=== PATIENT | male | born 1955 | race Caucasian/White ===

== ENCOUNTER → 2019-02-09 | Outpatient (CLI) | payer BC ==
--- NOTE | 2019-02-09 15:19 | RADIOLOGY REPORT (SQ) ---
EXAM DESCRIPTION: CT ABDOMEN COMBO COMPLETED DATE/TIME: 02/09/2019 2:21 pm REASON FOR STUDY: R74.0 NONSPEC ELEV OF LEVELS OF TRANSAMNS LACTIC ACID DEHYDRGNSE R74.0 NONSPEC ELEV OF LEVELS OF TRANSAMNS LACTIC ACID DEHY COMPARISON: None. TECHNIQUE: CT scan of the abdomen performed with and without intravenous contrast, and oral contras t. Contrasted imaging performed using helical scanning technique with dynamic intravenous contrast in jection. Images reviewed with lung, soft tissue, and bone windows. Reconstructed coronal and sagittal MPR images reviewed. Delayed images for evaluation of the urinary system also acquired and evaluated . All images stored on PACS. All CT scanners at this facility use dose modulation, iterative reconstruction, and/or weight based d osing when appropriate to reduce radiation dose to as low as reasonably achievable (ALARA). [facility]: Dose Right [facility]: CareDose [facility]: Dose Right [facility]: Teradose 4D [facility]: [employer] CONTRAST TYPE AND DOSE: Contrast/concentration: Isovue 350.00 mg/ml; Total Contrast Delivered: 55.0 ml; Total Saline Delivered: 80.0 ml RENAL FUNCTION: Creatinine 0.8 milligram/deciliter RADIATION DOSE: CT Rad equipment meets quality standard of care and radiation dose reduction [employer], [employer] ues were employed. CTDIvol: 12.2 - 33.8 mGy. DLP: 2199 mGy-cm.. LIMITATIONS: None. FINDINGS: NONCONTRASTED IMAGING: The diffuse hypoattenuation of the hepatic parenchyma is consistent with hepatic steatosis. There is no nephrolithiasis. POSTCONTRASTED IMAGING: LOWER CHEST: No basilar consolidation or pleural effusion. No cardiomegaly or pericardial effusion. LIVER: The liver morphology is non cirrhotic. There is a subcentimeter hypervascular lesion in the h epatic dome (image 23 of series 5) that is isodense to the hepatic parenchyma on the portal venous an d delayed phases of contrast enhancement. The differential considerations for the lesion include a f lash filling hemangioma and and a vascular shunt. There is no other hepatic lesion. The portal and hepatic veins are patent. There is a standard hepatic arterial branch pattern. SPLEEN: No splenomegaly. There is an accessory splenule inferior to the spleen. PANCREAS: No abnormality. GALLBLADDER: No abnormality that is apparent on CT. ADRENAL GLANDS: No abnormality. RIGHT KIDNEY AND URETER: No solid masses. No hydronephrosis or hydroureter. LEFT KIDNEY AND URETER: No solid masses. No hydronephrosis or hydroureter. AORTA AND VESSELS: No aneurysm or dissection of the abdominal aorta. The celiac, SMA, renal arteries and MALA are patent without evidence of a luminal stenosis. RETROPERITONEUM: No retroperitoneal adenopathy, hemorrhage or mass. BOWEL AND PERITONEAL CAVITY: No abnormality. APPENDIX: Normal. ABDOMINAL WALL: No masses or hernias. BONES: No acute findings. OTHER: No other finding. IMPRESSION: 1. Hepatic steatosis. 2. Hypervascular lesion in the hepatic dome (image 23 of series 5) that is isodense to the hepatic p arenchyma on the portal venous and delayed phases of contrast enhancement. The differential consider ations for the lesion include a flash filling hemangioma and a vascular shunt. TECHNICAL DOCUMENTATION: JOB ID: [id number] Quality ID # [id number]: Final reports with documentation of one or more dose reduction techniques (e.g., Au tomated exposure control, adjustment of the mA and/or kV according to patient size, use of iterative reconstruction technique) 2010 [employer]- All Rights Reserved Reading location - IP/workstation name: [email or web address]
== END ==
LOC: RAD 13:51
PROVIDERS: ATTEND Family Medicine
DX: K76.0 Fatty (change of) liver, not elsewhere classified (principal); R74.0 Nonspecific elevation of levels of transaminase and lactic acid dehydrogenase [LDH]
CPT/HCPCS: 74170; 82565